=== PATIENT | male | born 1990 | race American Indian/Alaskan Native ===

== ENCOUNTER 2017-05-03 16:33 | Emergency (ER) | payer OTHER | END 2017-05-03 18:02 | disposition left against medical advice (07) | LOC: DL.ED 16:33 | DX: Z53.21 Procedure and treatment not carried out due to patient leaving prior to being seen by health care provider (principal) ==

== ENCOUNTER 2018-03-28 09:51 | Emergency (ER) | payer OTHER ==
[~2018-03-28 09:51] MED LIST: Diphtheria,Pertussis(Acell),Tetanus Vaccine 0.5 ML SDV IM ONE; Ibuprofen 800 MG Tab PO ONE; Lidocaine 1% with EPINEPHrine 1:100,000 30 ML MDV INJECT ONE
[2018-03-28] MEDS ORDERED: Lidocaine 1% with EPINEPHrine 1:100,000 20 ML MDV ONE (09:53)
[2018-03-28] MEDS ORDERED: Lidocaine 1% with EPINEPHrine 1:100,000 30 ML MDV INJECT ONE (10:02)
[2018-03-28] MEDS ORDERED: Lidocaine 1% 30 ML SDV ONE (10:04)
[2018-03-28] MEDS ORDERED: Lidocaine 1% 30 ML SDV INJECT ONE ×2 (10:06→10:08)
[2018-03-28] MEDS ORDERED: Bacitracin Oint 1 GM U/D Packet TOP ONE (10:58)
[2018-03-28] MEDS ORDERED: Cephalexin 500 MG Cap PO ONE (11:04)
[2018-03-28 11:09] VITALS: BP 108/75
--- NOTE | 2018-03-28 13:04 | ER ---
SUBJECTIVE: The patient is a 27-year-old male who is brought in to the emergency room via EMS, who comes in with multiple right ventral forearm lacerations, reportedly sustained by pulling through a broken window. He can move his hand, wrist, and all his fingers. He did have bleeding initially. His shirt was cut off. Pressure was applied. He was brought in by EMS. No other injuries. No syncope or near syncope. He is unsure of his last tetanus shot. He took no medications prior to arrival. PAST MEDICAL HISTORY: He denies. CURRENT MEDICATIONS: He denies being allergic to any medicines. SOCIAL HISTORY: He states he is not but has been living with his girlfriend since he was 17 years old, and they have 3 kids together. He does smoke cigarettes every day. He drinks alcohol monthly. He is intoxicated today. REVIEW OF SYSTEMS: No syncope or near syncope. No head trauma, neck trauma, chest pain, or shortness of breath. He is negative except for the right forearm lacerations. OBJECTIVE: Vital Signs: Stable. He is afebrile. Blood pressure 128/88, heart rate is 84, and oxygen is 98% on room air. General: Pleasant and somewhat intoxicated, smells like alcohol. Very talkative, interactive, fairly cooperative. HEENT: Normocephalic and atraumatic. A and O x3. No respiratory distress. He moves well. He comes in shirtless. Extremities: He does have a pressure bandage around his right forearm. He has good radial pulse. He is able to move his fingers. His flexor digitorum profundus and superficialis are intact. He has good capillary refill. SENIOR INTERIOR DESIGNER appears to be intact. Full wrist motion. He has good hand strength. The elbow was not involved. Removal of the dressing shows multiple jagged lacerations that are transversely across the axis of the ventral forearm. They are all very jagged. No foreign bodies are appreciated. It is scrubbed and irrigated. Again, no foreign bodies noted. They are all full thickness and go into the subcutaneous tissue. There is no muscular injury, however. The multiple lacerations have a total length of 21.5 cm and are all jagged. EMERGENCY ROOM COURSE: The 21.5 cm jagged full-thickness lacerations of the right ventral forearm was repaired using 3-0 Ethilon sutures in a running and locking fashion. This allowed excellent approximation and hemostasis. Three separate suture packs were used in order to complete the length of the 21.5 cm of linear laceration. He tolerated this very well. Local anesthesia was performed with lidocaine. SENIOR INTERIOR DESIGNER remained intact once repair was finished. The patient remained having excellent capillary refill. Full range of motion of his fingers and hand. Good radial pulse. He was given injection of tetanus and a tablet of ibuprofen and a tablet of Keflex. His wounds were dressed with triple antibiotic and dressing by the RN. ASSESSMENT: 1. Right ventral forearm multiple jagged and full-thickness complex lacerations of 21.5 cm in total length, repaired with sutures. 2. A tetanus prophylaxis. PLAN: Elevate the arm if throbs. Take Tylenol/ibuprofen for any pain. Keep clean and dry. I told him I want him to have his PCP to re-evaluate this laceration in the middle of next week or sooner if needed. Advised him to fill the prescription for Keflex q.i.d. for the next 7 days. Watch for infection. Sutures will come out in about 2 weeks. [facility] /[id number]
== END 2018-03-28 11:41 | disposition home or self-care (01) ==
LOC: DL.ED 09:51
DX: S51.811A Laceration without foreign body of right forearm, initial encounter (principal); F17.210 Nicotine dependence, cigarettes, uncomplicated; W26.9XXA Contact with unspecified sharp object(s), initial encounter; Z23 Encounter for immunization; F10.129 Alcohol abuse with intoxication, unspecified
CPT/HCPCS: 12006; 12011; 90471; 90715; 99283; 99284; A9270-GY

== ENCOUNTER 2020-02-09 20:29 | Emergency (ER) | payer MEDICAID, OTHER ==
[2020-02-09 20:44] VITALS: BP 149/58; PULSE 78
--- NOTE | 2020-02-09 21:09 | EDM.PDOC ---
ED HPI GENERAL MEDICAL PROBLEM - General Chief Complaint: Lower Extremity Injury/Pain Stated Complaint: HURT RIGHT KNEE Time Seen by Provider: 02/09/20 20:40 Source of Information: Reports: Patient History Limitations: Reports: No Limitations - History of Present Illness INITIAL COMMENTS - FREE TEXT/NARRATIVE: ED with c/o right knee pain, reports hyperextending knee on landing when coming down from lay up while playing basketball VISUAL EFFECTS ARTIST. Remote prior similar injury to same knee 9 years ago. Was told then needed MRI but never followed through. Aleve x 1 VISUAL EFFECTS ARTIST. no other injury Treatments VISUAL EFFECTS ARTIST: Reports: NSAIDS Right Knee Pain Score (Numeric/FACES): 9 - Related Data Allergies Allergy/AdvReac Type Severity Reaction Status Date / Time No Known Allergies Allergy Verified 02/09/20 20:44 Home Meds: Home Meds . [No Known Home Meds] 05/03/17 [History] Past Medical History - Past Health History Medical/Surgical History: Denies Medical/Surgical History Social & Family History - Family History Family Medical History: Noncontributory - Tobacco Use Smoking Status *Q: Never Smoker Second Hand Smoke Exposure: No - Caffeine Use Caffeine Use: Reports: Energy Drinks, Soda - Recreational Drug Use Recreational Drug Use: Yes Drug Use in Last 12 Months: Yes Recreational Drug Type: Reports: Marijuana/Hashish Recreational Drug Use Frequency: Socially Recreational Drug Last Use: 02-08-2020 Review of Systems - Review of Systems Review Of Systems: Comprehensive ROS is negative, except as noted in HPI. ED EXAM, GENERAL - Physical Exam Exam: See Below Exam Limited By: No Limitations General Appearance: Alert, Mild Distress Ears: Normal External Exam, Hearing Grossly Normal Nose: Normal Inspection Head: Atraumatic Neck: Full Range of Motion Respiratory/Chest: No Respiratory Distress, Normal Breath Sounds Extremities: Limited Range of Motion, Other (increased pain with flexion, mild crepitus increased pain with lateral stress. no gross deformity) Neurological: Alert, Oriented, Normal Cognition Psychiatric: Normal Affect Skin Exam: Warm, Dry, Intact Course - Vital Signs Last Recorded V/S: Last Vital Signs Temp 96.4 F L 02/09/20 20:36 Pulse 78 02/09/20 20:36 Resp 18 02/09/20 20:36 BP 149/58 H 02/09/20 20:36 Pulse Ox 100 02/09/20 20:36 - Orders/Labs/Meds Orders: Active Orders 24 hr Category Date Time Status Knee 3V Rt [CR] Urgent Exams 02/09/20 20:34 Ordered - Radiology Interpretation Free Text/Narrative:: [facility] [place] [facility] Final Radiology Report Call: [phone] assistance Online chat: [email or web address] Name: XIN HAQUE Age: 29Years M Date: 02/09/2020 SSN: -- : 1990 Study: XR KNEE 3 VIEWS RIGHT Requesting Physician: CORTEZ SLAUGHTER Images: 3 Addl Studies: Provided Clinical History: Contrast: Contrast Medium: Contrast Amount: Contrast Method: CONFIDENTIALITY STATEMENT This report is intended only for use by the referring physician, and only in accordance with law. If you received this in error, call [phone]. Page 1 of 1 PROCEDURE INFORMATION: Exam: XR Right Knee Exam date and time: 02/09/2020 8:38 PM Age: 29 years old Clinical indication: Pain; Knee; Right TECHNIQUE: Imaging protocol: XR Right knee. Views: 3 views. COMPARISON: No relevant prior studies available. FINDINGS: Bones/joints: The bones appear intact. No acute fracture is identified. The joints are normally aligned and articulated. No knee joint effusion is identified. Soft tissues: Unremarkable. IMPRESSION: No acute osseous injury identified. Thank you for allowing us to participate in the care of your patient. Dictated and Authenticated by: Lindsay Betancourt MD Departure - Departure Time of Disposition: 21:06 Disposition: Home, Self-Care 01 Condition: Good Clinical Impression: Sprain of right knee Qualifiers: Encounter type: initial encounter Involved ligament of knee: lateral collateral ligament Qualified Code(s): S83.421A - Sprain of lateral collateral ligament of right knee, initial encounter - Discharge Information *PRESCRIPTION DRUG MONITORING PROGRAM REVIEWED*: No *COPY OF PRESCRIPTION DRUG MONITORING REPORT IN PATIENT RENETTA: No Instructions: Knee Sprain, Adult Additional Instructions: alternate tylenol and ibuprofen every 4 hours as needed for discomfort knee immobilizer keep ice to knee weight bearing as tolerated clinic follow up in one week Sepsis Event Note - Evaluation Sepsis Screening Result: No Definite Risk - Focused Exam Vital Signs: Vital Signs Temp Pulse Resp BP Pulse Ox 02/09/20 20:36 96.4 F L 78 18 149/58 H 100 Date Exam was Performed: 02/09/20 Time Exam was Performed: 21:04 - My Orders Last 24 Hours: My Active Orders 02/09/20 20:34 Knee 3V Rt [CR] Urgent - Assessment/Plan Last 24 Hours: My Active Orders 02/09/20 20:34 Knee 3V Rt [CR] Urgent
== END 2020-02-09 21:15 | disposition home or self-care (01) ==
LOC: DL.ED 20:29
DX: S83.421A Sprain of lateral collateral ligament of right knee, initial encounter (principal); W18.30XA Fall on same level, unspecified, initial encounter; Y93.67 Activity, basketball
CPT/HCPCS: 73562-RT; 99283-25

== ENCOUNTER 2022-04-01 12:45 | Emergency (ER) | payer MEDICAID, OTHER ==
[2022-04-01 14:14] VITALS: BP 128/93; PULSE 74
[2022-04-01] MEDS ORDERED: Lidocaine 1% 30 ML SDV INJECT ONE (15:15)
== END 2022-04-01 16:30 | disposition home or self-care (01) ==
LOC: DL.ED 12:45
DX: S63.275A Dislocation of unspecified interphalangeal joint of left ring finger, initial encounter (principal); V89.2XXA Person injured in unspecified motor-vehicle accident, traffic, initial encounter
CPT/HCPCS: 26770; 70450; 70486; 72125; 73130-LT; 73140-F3; 99283-25

== ENCOUNTER 2023-06-20 06:45 | Emergency (ER) | payer SELFPAY ==
[2023-06-20 06:50] VITALS: BP 143/98; PULSE 105
[2023-06-20] MEDS ORDERED: Lidocaine 1% 5 ML VIAL INJECT ONE (07:18)
[2023-06-20] MEDS ORDERED: Amoxicillin/Clavulanate K 875-125 MG Tab PO ONE (07:35)
[2023-06-20] MEDS ORDERED: Bacitracin Oint 1 GM U/D Packet TOP ONE (07:35)
== END 2023-06-20 08:24 | disposition home or self-care (01) ==
LOC: DL.ED 06:45
DX: S61.251A Open bite of left index finger without damage to nail, initial encounter (principal); F17.210 Nicotine dependence, cigarettes, uncomplicated; W54.0XXA Bitten by dog, initial encounter
CPT/HCPCS: 99283; A9270; 99282; J3490

== ENCOUNTER 2024-02-09 01:44 | Emergency (ER) | payer OTHER ==
[2024-02-09] MEDS: Sodium Chloride 0.9% 1,000 ML IV SCH (02:04)
[2024-02-09] MEDS: Ondansetron 4 MG/2 ML SDV IVPUSH ONE (02:05)
[2024-02-09] MEDS: HYDROmorphone 0.5 MG/0.5 ML Syringe IVPUSH ONE (02:05)
[2024-02-09] MEDS: Sodium Chloride 0.9% 10 ML Syringe FLUSH PRN (02:05)
[2024-02-09 02:11] LABS: BASOPHILS PERCENT AUTO 0.3 % (0.0-1.0); EOSINOPHILS PERCENT AUTO 2.7 % (1.0-3.0); HEMATOCRIT 46.1 % (40.0-54.0); HEMOGLOBIN 15.6 g/dL (14.0-18.0); LYMPHOCYTES PERCENT AUTO 31.8 % (20.5-50.1); MEAN CORPUSCULAR HGB CONC 33.8 g/dL (33.0-35.0); MEAN CORPUSCULAR VOLUME 91.5 fL (80-100); MONOCYTES PERCENT AUTO 9.9 % (2-8); NEUTROPHILS PERCENT AUTO 55.3 % (42.2-75.2); PLATELET COUNT,PLT 284 10^3/uL (150-450); RED BLOOD CELL COUNT 5.04 10^6/uL (4.6-6.2); WHITE BLOOD CELL COUNT,WBC 9.9 10^3/uL (5.0-10.0)
[2024-02-09 02:31] LABS: A/G RATIO 0.9; ALBUMIN 3.6 g/dL (3.4-5.0); ANION GAP 12.8 mEq/L (7-13); BILIRUBIN TOTAL 0.6 mg/dL (0.2-1.0); BUN/CREATININE RATIO 15.5 (No establ ref range); CALCIUM 8.7 mg/dL (8.5-10.1); CREATININE 1.03 mg/dL (0.70-1.30); EST CRCL DRUG DOSING (CG) 109.66 mL/min; POTASSIUM,K 3.8 mmol/L (3.5-5.1); PROTEIN TOTAL,TP 7.8 g/dL (6.4-8.2)
[2024-02-09 03:26] VITALS: BP 121/72; PULSE 64
== END 2024-02-09 03:26 | disposition home or self-care (01) ==
LOC: DL.ED 01:44
DX: R10.11 Right upper quadrant pain (principal)
CPT/HCPCS: 36415; 80053; 83690; 85025; 96361; 96374; 96375; 99283; 99284-25; J1170; J2405; J3490; J7030

== ENCOUNTER 2024-03-28 13:13 | Emergency (ER) | payer SELFPAY ==
[2024-03-28 13:22] VITALS: BP 130/82; PULSE 62
[2024-03-28] MEDS: Ondansetron 4 MG/2 ML SDV IVPUSH ONE (13:31)
[2024-03-28] MEDS: Morphine 4 MG/ML Syringe IVPUSH ONE (13:34)
[2024-03-28] MEDS: Famotidine 20 MG/2 ML SDV IVPUSH ONE (13:35)
[2024-03-28] MEDS: Sodium Chloride 0.9% 1,000 ML IV ONE ×2 (13:35→15:54)
[2024-03-28 13:40] LABS: BASOPHILS PERCENT AUTO 0.2 % (0.0-1.0); EOSINOPHILS PERCENT AUTO 1.9 % (1.0-3.0); HEMATOCRIT 44.4 % (40.0-54.0); HEMOGLOBIN 15.1 g/dL (14.0-18.0); LYMPHOCYTES PERCENT AUTO 21.2 % (20.5-50.1); MEAN CORPUSCULAR HEMOGLOBIN 30.9 pg (27.0-34.0); MEAN CORPUSCULAR VOLUME 90.8 fL (80-100); MONOCYTES PERCENT AUTO 5.4 % (2-8); NEUTROPHILS PERCENT AUTO 71.3 % (42.2-75.2); PLATELET COUNT,PLT 342 10^3/uL (150-450); RED BLOOD CELL COUNT 4.89 10^6/uL (4.6-6.2)
[2024-03-28 14:03] LABS: A/G RATIO 0.9; ALANINE AMINOTRANSFERASE,ALT 118 U/L (16-63); ALBUMIN 3.6 g/dL (3.4-5.0); ALKALINE PHOSPHATASE 74 U/L (46-116); ANION GAP 16.7 mEq/L (7-13); ASPARTATE AMNIOTRANSFERASE,AST 62 U/L (15-37); BILIRUBIN TOTAL 0.6 mg/dL (0.2-1.0); BLOOD UREA NITROGEN,BUN 11 mg/dL (7-18); BUN/CREATININE RATIO 11.5 (No establ ref range); CALCIUM 9.3 mg/dL (8.5-10.1); CARBON DIOXIDE,CO2 23 mmol/L (21-32); CHLORIDE,CL 103 mmol/L (98-107); CREATININE 0.96 mg/dL (0.70-1.30); EST CRCL DRUG DOSING (CG) 117.66 mL/min; GLUCOSE RANDOM 125 mg/dL (70-99); LIPASE 46 U/L (16-77); MAGNESIUM 1.8 mg/dL (1.8-2.4); POTASSIUM,K 3.7 mmol/L (3.5-5.1); PROTEIN TOTAL,TP 7.8 g/dL (6.4-8.2); SODIUM,NA 139 mmol/L (136-145)
[2024-03-28 14:10] LABS: C-REACTIVE PROTEIN < 0.50 ng/dL (<=0.50); ESTIMATED GFR 108 mL/min (>=60); ETHANOL BLOOD MEDICAL < 3 mg/dL (0); LACTIC ACID 2.7 mmol/L (0.4-2.0)
[2024-03-28] MEDS: Iopamidol 612 MG/ML 100 ML Bottle IVPUSH ONE (14:10)
[2024-03-28] MEDS: Piperacillin/Tazobactam 4.5 GM in Sodium Chloride 0.9% 100 ML IV ONE (14:16)
[2024-03-28 14:43] LABS: APPEARANCE,URINE CLEAR (CLEAR); BILIRUBIN,URINE NEGATIVE (NEGATIVE); COLOR,URINE YELLOW (YELLOW); GLUCOSE,URINE NEGATIVE (NEGATIVE); KETONES,URINE NEGATIVE (NEGATIVE); LEUKOCYTE ESTERASE,URINE NEGATIVE (NEGATIVE); NITRITE,URINE NEGATIVE (NEGATIVE); OCCULT BLOOD,URINE NEGATIVE (NEGATIVE); PH,URINE >= 9.0 (5.0-9.0); PROTEIN,URINE 30 (NEGATIVE)
[2024-03-28 14:44] LABS: INR 0.9 (0.9-1.2); PROTHROMBIN TIME 9.1 SEC (9.0-12.0)
[2024-03-28 14:48] LABS: AMPHETAMINES,URINE NEGATIVE (NEGATIVE); BARBITURATES,URINE NEGATIVE (NEGATIVE); BENZODIAZEPINE,URINE NEGATIVE (NEGATIVE); MDMA (ECSTASY), URINE NEGATIVE (NEGATIVE); METHADONE,URINE NEGATIVE (NEGATIVE); METHAMPHETAMINES,URINE POSITIVE (NEGATIVE); OPIATES,URINE POSITIVE (NEGATIVE); OXYCODONE,URINE NEGATIVE (NEGATIVE); PHENCYCLIDINE,URINE NEGATIVE (NEGATIVE); TCA,URINE NEGATIVE (NEGATIVE)
[2024-03-28 14:58] LABS: AMORPHOUS SEDIMENT,URINE FEW /HPF (NOT SEEN); BACTERIA,URINE FEW /HPF (0-FEW/HPF); EPITHELIAL CELLS,URINE FEW /HPF (NOT SEEN); MUCUS,URINE OCCASIONAL /LPF (NOT SEEN); RBC,URINE 0-5 /HPF (0-5); WBC,URINE NOT SEEN /HPF (0-5/HPF)
== END 2024-03-28 16:23 ==
LOC: DL.ED 13:13
DX: A41.9 Sepsis, unspecified organism (principal); R10.11 Right upper quadrant pain; F19.10 Other psychoactive substance abuse, uncomplicated; E86.0 Dehydration
CPT/HCPCS: 36415; 74177; 80053; 80305; 80307; 81001; 82947; 83605; 83690; 83735; 84484; 85025; 85610; 86140; 87040; 93005; 93010; 96361; 96365; 96375; 99285; J2270; J2405; J2543; J3490; J7030; Q9967

== ENCOUNTER 2024-10-20 06:50 | Emergency (ER) | payer OTHER ==
[2024-10-20] MEDS: Iopamidol 612 MG/ML 100 ML Bottle IVPUSH ONE ×2 (06:17→09:59)
[2024-10-20 06:26] LABS: BASOPHILS PERCENT AUTO 0.2 % (0.0-1.0); EOSINOPHILS PERCENT AUTO 0.2 % (1.0-3.0); HEMATOCRIT 49.1 % (40.0-54.0); HEMOGLOBIN 16.5 g/dL (14.0-18.0); LYMPHOCYTES PERCENT AUTO 15.1 % (20.5-50.1); MEAN CORPUSCULAR HEMOGLOBIN 30.4 pg (27.0-34.0); MEAN CORPUSCULAR HGB CONC 33.6 g/dL (33.0-35.0); MEAN CORPUSCULAR VOLUME 90.4 fL (80-100); MONOCYTES PERCENT AUTO 4.2 % (2-8); NEUTROPHILS PERCENT AUTO 80.3 % (42.2-75.2); PLATELET COUNT,PLT 355 10^3/uL (150-450); RED BLOOD CELL COUNT 5.43 10^6/uL (4.6-6.2)
[2024-10-20 06:46] LABS: INR 0.9 (0.9-1.2); PROTHROMBIN TIME 9.8 SEC (9.0-12.0)
[2024-10-20 06:47] LABS: A/G RATIO 0.8; ALANINE AMINOTRANSFERASE,ALT 99 U/L (16-63); ALBUMIN 3.8 g/dL (3.4-5.0); ALKALINE PHOSPHATASE 75 U/L (46-116); ANION GAP 14.1 mEq/L (7-13); ASPARTATE AMNIOTRANSFERASE,AST 63 U/L (15-37); BILIRUBIN TOTAL 0.2 mg/dL (0.2-1.0); BLOOD UREA NITROGEN,BUN 11 mg/dL (7-18); BUN/CREATININE RATIO 13.3 (No establ ref range); CALCIUM 8.9 mg/dL (8.5-10.1); CARBON DIOXIDE,CO2 28 mmol/L (21-32); CHLORIDE,CL 103 mmol/L (98-107); CREATININE 0.83 mg/dL (0.70-1.30); ETHANOL BLOOD MEDICAL 197 mg/dL (0); GLUCOSE RANDOM 123 mg/dL (70-99); MAGNESIUM 2.1 mg/dL (1.8-2.4); POTASSIUM,K 4.1 mmol/L (3.5-5.1); PROTEIN TOTAL,TP 8.8 g/dL (6.4-8.2); SODIUM,NA 141 mmol/L (136-145)
[2024-10-20 06:48] LABS: ESTIMATED GFR 119 mL/min (>=60)
[2024-10-20] MEDS: Sodium Chloride 0.9% 1,000 ML IV ONE (07:02)
[2024-10-20 08:44] LABS: APPEARANCE,URINE CLEAR (CLEAR); BILIRUBIN,URINE NEGATIVE (NEGATIVE); COLOR,URINE YELLOW (YELLOW); GLUCOSE,URINE NEGATIVE (NEGATIVE); KETONES,URINE NEGATIVE (NEGATIVE); LEUKOCYTE ESTERASE,URINE NEGATIVE (NEGATIVE); NITRITE,URINE NEGATIVE (NEGATIVE); OCCULT BLOOD,URINE MODERATE (NEGATIVE); PH,URINE 5.5 (5.0-9.0); PROTEIN,URINE NEGATIVE (NEGATIVE); UROBILINOGEN,URINE 0.2 mg/dL (0.2-1.0)
[2024-10-20 08:49] LABS: AMPHETAMINES,URINE POSITIVE (NEGATIVE); BARBITURATES,URINE NEGATIVE (NEGATIVE); BENZODIAZEPINE,URINE NEGATIVE (NEGATIVE); MDMA (ECSTASY), URINE NEGATIVE (NEGATIVE); METHADONE,URINE NEGATIVE (NEGATIVE); METHAMPHETAMINES,URINE POSITIVE (NEGATIVE); OPIATES,URINE NEGATIVE (NEGATIVE); OXYCODONE,URINE NEGATIVE (NEGATIVE); PHENCYCLIDINE,URINE NEGATIVE (NEGATIVE); TCA,URINE NEGATIVE (NEGATIVE)
[2024-10-20 08:53] LABS: BACTERIA,URINE RARE /HPF (0-FEW/HPF); EPITHELIAL CELLS,URINE RARE /HPF (NOT SEEN); MUCUS,URINE OCCASIONAL /LPF (NOT SEEN); RBC,URINE 0-5 /HPF (0-5); WBC,URINE NOT SEEN /HPF (0-5/HPF)
[2024-10-20] MEDS: Morphine 2 MG/ML SYRINGE ONE (11:06)
[2024-10-20] MEDS: fentaNYL 100 MCG/2 ML SDV IVPUSH ONE (12:17)
== END 2024-10-20 12:38 | disposition home or self-care (01) ==
LOC: DL.ED 06:50
DX: S52.602A Unspecified fracture of lower end of left ulna, initial encounter for closed fracture (principal); S52.592A Other fractures of lower end of left radius, initial encounter for closed fracture; F10.129 Alcohol abuse with intoxication, unspecified; V49.50XA Passenger injured in collision with unspecified motor vehicles in traffic accident, initial encounter
CPT/HCPCS: 29125; 36415; 70450; 70486; 71260; 72125; 73090-LT; 73120-LT; 74177; 80053; 80305-QW; 80307; 81001; 83735; 84484; 85025; 85610; 93010; 96361; 96374; 96375; 99284; 99285-25; J2270; J3010; J7030; Q9967

== ENCOUNTER 2024-12-10 22:07 | Emergency (ER) | payer OTHER ==
[2024-12-10] MEDS ORDERED: Sodium Chloride 0.9% 10 ML Syringe FLUSH PRN (22:24)
[2024-12-10] MEDS: Lactated Ringers 1,000 ML IV ONE (22:37)
[2024-12-10 22:50] LABS: BASOPHILS PERCENT AUTO 0.1 % (0.0-1.0); EOSINOPHILS PERCENT AUTO 1.4 % (1.0-3.0); HEMATOCRIT 39.7 % (40.0-54.0); HEMOGLOBIN 13.4 g/dL (14.0-18.0); LYMPHOCYTES PERCENT AUTO 12.5 % (20.5-50.1); MEAN CORPUSCULAR HGB CONC 33.8 g/dL (33.0-35.0); MONOCYTES PERCENT AUTO 7.9 % (2-8); NEUTROPHILS PERCENT AUTO 78.1 % (42.2-75.2); PLATELET COUNT,PLT 281 10^3/uL (150-450); RED BLOOD CELL COUNT 4.46 10^6/uL (4.6-6.2); WHITE BLOOD CELL COUNT,WBC 15.2 10^3/uL (5.0-10.0)
[2024-12-10 23:09] LABS: INR 0.9 (0.9-1.2); PROTHROMBIN TIME 9.2 SEC (9.0-12.0); PTT,PARTIAL THROMBOPLSTIN TIME 24.8 SEC (22.0-34.0)
[2024-12-10 23:10] LABS: ALANINE AMINOTRANSFERASE,ALT 56 U/L (16-63); ALBUMIN 3.1 g/dL (3.4-5.0); ALKALINE PHOSPHATASE 115 U/L (46-116); ANION GAP 13.5 mEq/L (7-13); ASPARTATE AMNIOTRANSFERASE,AST 21 U/L (15-37); BILIRUBIN TOTAL 0.5 mg/dL (0.2-1.0); BLOOD UREA NITROGEN,BUN 15 mg/dL (7-18); BUN/CREATININE RATIO 14.7 (No establ ref range); C-REACTIVE PROTEIN 8.02 ng/dL (<=0.50); CALCIUM 8.6 mg/dL (8.5-10.1); CARBON DIOXIDE,CO2 23 mmol/L (21-32); CHLORIDE,CL 104 mmol/L (98-107); CREATININE 1.02 mg/dL (0.70-1.30); GLUCOSE RANDOM 105 mg/dL (70-99); POTASSIUM,K 3.5 mmol/L (3.5-5.1); PROTEIN TOTAL,TP 7.1 g/dL (6.4-8.2); SODIUM,NA 137 mmol/L (136-145)
[2024-12-10 23:11] LABS: A/G RATIO 0.78; ESTIMATED GFR 100 mL/min (>=60); ETHANOL BLOOD MEDICAL < 3 mg/dL (0)
[2024-12-10 23:15] LABS: LACTIC ACID 1.1 mmol/L (0.4-2.0)
[2024-12-11] MEDS: VANCOmycin 1.75 GM in Sodium Chloride 0.9% 500 ML IV ONE
[2024-12-11] MEDS: Piperacillin/Tazobactam 3.375 GM in Sodium Chloride 0.9% 100 ML IV ONE (00:18)
[2024-12-11 00:48] VITALS: BP 136/82; PULSE 78
== END 2024-12-11 00:36 ==
LOC: DL.ED 22:07
DX: L03.011 Cellulitis of right finger (principal); S52.92XS Unspecified fracture of left forearm, sequela; F19.10 Other psychoactive substance abuse, uncomplicated; Z91.148 Patient's other noncompliance with medication regimen for other reason
CPT/HCPCS: 36415; 80053; 80307; 83605; 85025; 85610; 85730; 86140; 87040; 96361; 96365; 96368; 99284; 99285; J2543; J3371; J3490; J7040; J7120